=== PATIENT | female | born 1950 | race Caucasian/White ===

== ENCOUNTER → 2017-02-14 | Outpatient (CLI) | payer OTHER | LOC: RAD 11:14 | PROVIDERS: ATTEND Internal Medicine | DX: E01.0 Iodine-deficiency related diffuse (endemic) goiter (principal) ==

== ENCOUNTER 2022-07-09 13:27 | Emergency (ER) | payer OTHER, MEDICARE ==
[~2022-07-09] VITALS: Ht 160 cm; Wt 73.0 kg
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
[2022-07-09] MEDS ORDERED: TETANUS,DIPTH,PERTUSS P/F (BOOSTRIX) 0.5 ML VIAL IM ONE (14:00)
--- NOTE | 2022-07-09 14:43 | Diagnostic Imaging Report ---
INDICATION: Right wrist pain. TECHNIQUE: AP, oblique, and lateral views of the right wrist are obtained. FINDINGS: There is a comminuted fracture of the distal radius, with vertical and horizontal component. There does appear to be intra-articular extension. There is underlying degenerative change of the radiocarpal joint and first carpometacarpal joint. No other fractures are visualized. IMPRESSION: Comminuted distal radial intra-articular fracture with underlying degenerative changes. Dictated by: Dictated on workstation # [id number]
[2022-07-09] MEDS ORDERED: ACHD5005 PO (15:05)
[2022-07-09 15:15] VITALS: BP 148/80
== END 2022-07-09 15:15 | disposition home or self-care (01) ==
LOC: EDUNIT# 13:31 → ER 13:32
DX: S52.571A Other intraarticular fracture of lower end of right radius, initial encounter for closed fracture (principal); S90.02XA Contusion of left ankle, initial encounter; Z23 Encounter for immunization; V89.2XXA Person injured in unspecified motor-vehicle accident, traffic, initial encounter; Y92.410 Unspecified street and highway as the place of occurrence of the external cause
CPT/HCPCS: 73110; 90715